=== PATIENT | female | born 1945 | race Caucasian/White ===

== ENCOUNTER 2018-10-02 21:20 | Inpatient (IN) ==
[2018-10-03] MEDS ORDERED: Naloxone 0.4 MG/ML INJ IVP PRN (02:34)
[2018-10-03] MEDS ORDERED: Potassium Chloride Elixir 20 MEQ/15 ML UDC PO ONE ×2 (02:38→05:00)
[2018-10-03] MEDS ORDERED: 0.9 % Sodium Chloride 1,000 ML IVC SCH (04:15)
[2018-10-03 04:16] LABS: Basophils % 0.2 %; Hematocrit 41.3 % (35.3-44.9); Hemoglobin 13.7 g/dL (11.5-15.4); Immature Granulocytes % 0.4 % (0-4); Lymphocytes # 0.8 K/mcL (0.6-4.6); Lymphocytes % 9.8 %; Mean Corpuscular HGB Conc 33.2 g/dL (31.6-35.5); Mean Corpuscular Hemoglobin 27.7 pg (28.0-33.3); Mean Corpuscular Volume 83.6 fL (83.0-100.0); Monocytes # 0.7 K/mcL (0.0-1.3); Monocytes % 7.8 %; Neutrophils # 6.8 K/mcL (1.6-8.9); Platelet Count 214 K/mcL (140-400); Red Blood Count 4.94 M/mcL (3.82-4.97); Red Cell Distribution Width 15.3 % (11.5-14.5); Segmented Neutrophils % 81.8 %; White Blood Count 8.4 K/mcL (4.3-11.1)
[2018-10-03 04:23] LABS: INR 1.1; Prothrombin Time 12.8 Seconds (9.4-12.1)
[2018-10-03 04:43] LABS: Albumin 3.3 g/dL (3.5-5.7); Albumin/Globulin Ratio 1.8 (1.1-2.2); Bilirubin,Total 0.4 mg/dL (0.3-1.0); Globulin 1.8 g/dL (2.4-3.5); Magnesium 2.4 mg/dL (1.6-2.6); Potassium 2.2 mEq/L (3.5-5.1); Total Protein 5.1 g/dL (6.4-8.9)
[2018-10-03] MEDS: *HR* Heparin 5,000 UNIT/ML VIAL SQ SCH ×3 (04:59→20:54)
[2018-10-03 05:02] LABS: Thyroid Stimulating Hormone 0.456 mcIU/mL (0.340-5.600)
[2018-10-03] MEDS: Ondansetron 4 MG/2 ML VIAL IVP PRN ×2 (06:30→18:32)
[2018-10-03 07:22] LABS: Adenovirus F 40/41 PCR Not detected (Not detect); Astrovirus PCR Not detected (Not detect); C.difficile Toxin A/B Gene PCR Not detected (Not detect); Campylobacter by PCR Not detected (Not detect); Cryptosporidium by PCR Not detected (Not detect); Cyclospora cayetanensis PCR Not detected (Not detect); E. coli O157 by PCR Not detected (Not detect); Entamoeba histolytica PCR Not detected (Not detect); Enteroaggregative E.coli(EAEC) Not detected (Not detect); Enteropathogenic E.coli(EPEC) Not detected (Not detect); Enterotoxigenic E.coli (ETEC) Not detected (Not detect); Giardia lamblia PCR Not detected (Not detect); Norovirus GI/GII PCR Not detected (Not detect); Plesiomonas shigelloides PCR Not detected (Not detect); Rotavirus A PCR Not detected (Not detect); Salmonella PCR Not detected (Not detect); Sapovirus PCR Not detected (Not detect); Shig/EnteroinvasiveE coli EIEC Not detected (Not detect); Shigalike tox-prod E coli STEC Not detected (Not detect); Vibrio PCR Not detected (Not detect); Vibrio cholerae PCR Not detected (Not detect); Yersinia enterocolitica PCR Not detected (Not detect)
[2018-10-03] MEDS: Nystatin Cream 15 GM TUBE TP SCH ×2 (08:15→20:21)
[2018-10-03] MEDS: 0.9 % Sodium Chloride w KCl 40 MEQ/1,000 ML MLS IVC SCH ×2 (08:39→18:34)
[2018-10-03] MEDS: Aspirin Enteric Coated 81 MG Tablet PO SCH (08:39)
[2018-10-03] MEDS ORDERED: Loperamide 1 MG/5 ML UDC PO PRN (08:48)
[2018-10-03 11:21] LABS: Uric Acid 8.1 mg/dL (2.3-7.6)
[2018-10-03 11:22] LABS: Complement C3 81 mg/dL (87-200)
[2018-10-03 16:30] LABS: Bilirubin,Urine Negative (Negative); Blood,Urine Moderate (Negative); Clarity,Urine Turbid (Clear); Color,Urine Yellow (Yellow); Glucose,Urine (UA) Normal (Normal); Ketones,Urine Negative (Negative); Leukocyte Esterase,Urine Large (Negative); Nitrite,Urine Positive (Negative); Protein,Urine 100 mg/dL (Neg-Trace); Specific Gravity,Urine 1.016 (1.010-1.025); Urobilinogen,Urine Normal (Normal)
[2018-10-03 16:32] LABS: Bacteria,Urine Many per hpf (None-Few); RBC,Urine 15-30 per hpf (0-3); Squamous Epithelial Cell,Urine Many per lpf (None-Few); WBC,Urine TNTC per hpf (0-3)
[2018-10-03 16:36] LABS: Protein/Creatinine Ratio,Urine 1.76 mg/mg (0.00-0.20)
[2018-10-03] MEDS: DAPTOmycin 500 MG in 0.9 % Sodium Chloride 100 ML IVPB SCH (20:21)
[2018-10-04] MEDS: MetroNIDAZOLE 500 MG/100 ML 500 MG/100 ML BAG IVPB SCH ×3 (00:39→16:18)
[2018-10-04 05:22] LABS: Basophils % 0.2 %; Eosinophils % 0.2 %; Hematocrit 38.6 % (35.3-44.9); Hemoglobin 12.3 g/dL (11.5-15.4); Immature Granulocytes % 0.3 % (0-4); Lymphocytes # 1.2 K/mcL (0.6-4.6); Lymphocytes % 20.5 %; Mean Corpuscular HGB Conc 31.9 g/dL (31.6-35.5); Mean Corpuscular Hemoglobin 27.7 pg (28.0-33.3); Mean Corpuscular Volume 86.9 fL (83.0-100.0); Mean Platelet Volume 9.2 fL (9.4-12.4); Monocytes # 0.6 K/mcL (0.0-1.3); Monocytes % 10.3 %; Neutrophils # 4.1 K/mcL (1.6-8.9); Platelet Count 228 K/mcL (140-400); Red Blood Count 4.44 M/mcL (3.82-4.97); Red Cell Distribution Width 15.9 % (11.5-14.5); Segmented Neutrophils % 68.5 %
[2018-10-04] MEDS: Cefepime HCl 1,000 MG in Water for inj. (sterile) 10 ML IVP SCH ×2 (05:32→17:42)
[2018-10-04] MEDS: 0.9 % Sodium Chloride w KCl 40 MEQ/1,000 ML MLS IVC SCH (05:34)
[2018-10-04] MEDS: *HR* Heparin 5,000 UNIT/ML VIAL SQ SCH ×3 (05:34→21:22)
[2018-10-04 05:39] LABS: Calcium 9.2 mg/dL (8.6-10.3); Magnesium 2.3 mg/dL (1.6-2.6); Potassium 3.3 mEq/L (3.5-5.1)
[2018-10-04 05:40] LABS: C-Reactive Protein 71 mg/L (Less than 10); Creatine Kinase 12 Units/L (30-223)
[2018-10-04] MEDS: Aspirin Enteric Coated 81 MG Tablet PO SCH (08:51)
[2018-10-04] MEDS: Nystatin Cream 15 GM TUBE TP SCH ×2 (08:52→21:22)
[2018-10-05] MEDS: MetroNIDAZOLE 500 MG/100 ML 500 MG/100 ML BAG IVPB SCH ×4 (00:21→23:54)
[2018-10-05] MEDS: *HR* Heparin 5,000 UNIT/ML VIAL SQ SCH ×3 (05:31→21:56)
[2018-10-05] MEDS: Nystatin Cream 15 GM TUBE TP SCH ×2 (08:19→22:04)
[2018-10-05] MEDS: Aspirin Enteric Coated 81 MG Tablet PO SCH (08:19)
[2018-10-05 09:19] LABS: Basophils % 0.4 %; Eosinophils % 0.2 %; Hematocrit 37.9 % (35.3-44.9); Hemoglobin 12.1 g/dL (11.5-15.4); Immature Granulocytes % 0.6 % (0-4); Lymphocytes # 1.2 K/mcL (0.6-4.6); Lymphocytes % 23.2 %; Mean Corpuscular HGB Conc 31.9 g/dL (31.6-35.5); Mean Corpuscular Hemoglobin 27.7 pg (28.0-33.3); Mean Corpuscular Volume 86.7 fL (83.0-100.0); Mean Platelet Volume 9.3 fL (9.4-12.4); Monocytes # 0.5 K/mcL (0.0-1.3); Monocytes % 9.9 %; Neutrophils # 3.4 K/mcL (1.6-8.9); Platelet Count 204 K/mcL (140-400); Red Blood Count 4.37 M/mcL (3.82-4.97); Segmented Neutrophils % 65.7 %; White Blood Count 5.2 K/mcL (4.3-11.1)
[2018-10-05 09:33] LABS: Calcium 9.4 mg/dL (8.6-10.3); Magnesium 2.1 mg/dL (1.6-2.6); Potassium 3.2 mEq/L (3.5-5.1)
[2018-10-05] MEDS: Potassium Chloride Elixir 20 MEQ/15 ML UDC PO SCH ×2 (11:03→21:55)
[2018-10-05] MEDS ORDERED: Cefepime HCl 2,000 MG in Water for inj. (sterile) 10 ML IVP SCH (18:00)
[2018-10-05] MEDS: Cefepime HCl 2,000 MG in Water for inj. (sterile) 20 ML IVP SCH (18:41)
[2018-10-05] MEDS: DAPTOmycin 500 MG in 0.9 % Sodium Chloride 100 ML IVPB SCH (18:41)
[2018-10-05 20:38] LABS: Kappa Qnt Free Light Chains 1.89 mg/dL (0.33-1.94); Lambda Qnt Free Light Chains 1.54 mg/dL (0.57-2.63)
[2018-10-06 06:35] LABS: Basophils % 0.4 %; Hematocrit 36.7 % (35.3-44.9); Hemoglobin 11.8 g/dL (11.5-15.4); Immature Granulocytes % 0.2 % (0-4); Lymphocytes # 1.1 K/mcL (0.6-4.6); Lymphocytes % 22.2 %; Mean Corpuscular HGB Conc 32.2 g/dL (31.6-35.5); Mean Corpuscular Volume 87.2 fL (83.0-100.0); Mean Platelet Volume 9.3 fL (9.4-12.4); Monocytes # 0.5 K/mcL (0.0-1.3); Monocytes % 11.1 %; Neutrophils # 3.2 K/mcL (1.6-8.9); Platelet Count 183 K/mcL (140-400); Red Blood Count 4.21 M/mcL (3.82-4.97); Red Cell Distribution Width 15.9 % (11.5-14.5); Segmented Neutrophils % 66.1 %; White Blood Count 4.9 K/mcL (4.3-11.1)
[2018-10-06 06:57] LABS: Magnesium 2.1 mg/dL (1.6-2.6); Potassium 3.5 mEq/L (3.5-5.1)
[2018-10-06] MEDS: *HR* Heparin 5,000 UNIT/ML VIAL SQ SCH ×3 (07:35→20:10)
[2018-10-06 08:03] LABS: ANA IgG by ELISA NONE DETECTED (None Detected); Serine Protease-3 Antibody 1 AU/mL (0-19)
[2018-10-06] MEDS: Aspirin Enteric Coated 81 MG Tablet PO SCH (10:02)
[2018-10-06] MEDS: Potassium Chloride Elixir 20 MEQ/15 ML UDC PO SCH ×2 (10:02→20:11)
[2018-10-06] MEDS: Nystatin Cream 15 GM TUBE TP SCH ×2 (10:02→20:11)
[2018-10-06] MEDS: MetroNIDAZOLE 500 MG/100 ML 500 MG/100 ML BAG IVPB SCH ×3 (10:02→23:29)
[2018-10-06] MEDS: Cefepime HCl 2,000 MG in Water for inj. (sterile) 20 ML IVP SCH (18:46)
[2018-10-07 04:54] LABS: Alpha 2 Globulin (PEP) 0.78 g/dL (0.48-1.05); Beta Globulin (PEP) 0.46 g/dL (0.48-1.10)
[2018-10-07] MEDS: *HR* Heparin 5,000 UNIT/ML VIAL SQ SCH ×3 (05:14→20:49)
[2018-10-07 05:51] LABS: Basophils % 0.3 %; Eosinophils % 0.2 %; Hematocrit 37.4 % (35.3-44.9); Hemoglobin 12.1 g/dL (11.5-15.4); Immature Granulocytes % 0.5 % (0-4); Lymphocytes # 1.3 K/mcL (0.6-4.6); Lymphocytes % 19.9 %; Mean Corpuscular HGB Conc 32.4 g/dL (31.6-35.5); Mean Corpuscular Hemoglobin 27.9 pg (28.0-33.3); Mean Corpuscular Volume 86.4 fL (83.0-100.0); Mean Platelet Volume 9.2 fL (9.4-12.4); Monocytes # 0.7 K/mcL (0.0-1.3); Neutrophils # 4.4 K/mcL (1.6-8.9); Platelet Count 174 K/mcL (140-400); Red Blood Count 4.33 M/mcL (3.82-4.97); Red Cell Distribution Width 15.7 % (11.5-14.5); Segmented Neutrophils % 68.1 %; White Blood Count 6.5 K/mcL (4.3-11.1)
[2018-10-07 06:27] LABS: BUN/Creatinine Ratio 15 (6-26); Blood Urea Nitrogen 15 mg/dL (8-23); Calcium 8.7 mg/dL (8.6-10.3); Carbon Dioxide 12 mEq/L (23-29); Chloride 115 mEq/L (98-107); Creatine Kinase 10 Units/L (30-223); Glucose 108 mg/dL (70-105); Osmolality,Calculated 287 (280-300); Potassium 3.7 mEq/L (3.5-5.1); Sodium 138 mEq/L (136-145); eGFR For African Americans > 60 (> 60); eGFR For Non-African Americans 53 (> 60)
[2018-10-07] MEDS: MetroNIDAZOLE 500 MG/100 ML 500 MG/100 ML BAG IVPB SCH ×2 (08:56→16:50)
[2018-10-07] MEDS: Aspirin Enteric Coated 81 MG Tablet PO SCH (08:57)
[2018-10-07] MEDS: Potassium Chloride Elixir 20 MEQ/15 ML UDC PO SCH ×2 (08:58→22:10)
[2018-10-07] MEDS: Nystatin Cream 15 GM TUBE TP SCH ×2 (08:58→22:14)
[2018-10-07] MEDS ORDERED: Isovue-370 500 ML BOTTLE IVP ONE (10:27)
[2018-10-07 10:54] LABS: IFE Reflexed IFE Done; Immunoglobulin A 9 mg/dL (68-408); Immunoglobulin G 406 mg/dL (768-1632); Immunoglobulin M 35 mg/dL (35-263)
[2018-10-07] MEDS ORDERED: Cefepime HCl 2,000 MG in Water for inj. (sterile) 20 ML IVP SCH (11:00)
[2018-10-07] MEDS ORDERED: DAPTOmycin 500 MG in 0.9 % Sodium Chloride 100 ML IVPB SCH (12:00)
[2018-10-07] MEDS ORDERED: SODIUM CHLORIDE/NAHCO3/KCL/PEG 4,000 ML SOLN.RECON PO ONE (17:00)
[2018-10-07] MEDS ORDERED: Potassium Chloride 20 MEQ, Lidocaine 1% 2 ML in 0.9 % Sodium Chloride 250 ML IVPB ONE (20:50)
[2018-10-08] MEDS ORDERED: Pantoprazole 40 MG VIAL IVP ONE ×3 (01:56→10:53)
[2018-10-08] MEDS ORDERED: Nitroglycerin 0.4 MG TAB.SUBL SL PRN (02:00)
[2018-10-08] MEDS ORDERED: Morphine Sulfate 2 MG/ML SYRINGE IVP PRN (02:08)
[2018-10-08] MEDS: Piperacillin/Tazobactam 3.375 GM in 0.9 % Sodium Chloride Mini Bag 100 ML IVPB SCH ×3 (02:10→15:32)
[2018-10-08 02:26] LABS: ABG Base Excess -6 mEq/L (-2 to 3); ABG HCO3 17 mEq/L (21-27); ABG Oxygen Saturation 96 % (95-98); ABG PCO2 29 mmHg (35-45); ABG PH 7.39 pH Units (7.32-7.45); ABG PO2 78 mmHg (85-104); ABG TCO2 18 mEq/L (20-26)
[2018-10-08 02:40] LABS: Basophils % 0.3 %; Hematocrit 38.5 % (35.3-44.9); Hemoglobin 12.7 g/dL (11.5-15.4); Immature Granulocytes % 0.3 % (0-4); Lymphocytes # 1.3 K/mcL (0.6-4.6); Lymphocytes % 16.4 %; Mean Corpuscular Hemoglobin 27.6 pg (28.0-33.3); Mean Corpuscular Volume 83.7 fL (83.0-100.0); Mean Platelet Volume 9.2 fL (9.4-12.4); Monocytes # 0.9 K/mcL (0.0-1.3); Monocytes % 11.1 %; Neutrophils # 5.5 K/mcL (1.6-8.9); Platelet Count 161 K/mcL (140-400); Red Cell Distribution Width 15.5 % (11.5-14.5); Segmented Neutrophils % 71.9 %; White Blood Count 7.7 K/mcL (4.3-11.1)
[2018-10-08 02:58] LABS: BUN/Creatinine Ratio 15 (6-26); Blood Urea Nitrogen 13 mg/dL (8-23); Calcium 9.1 mg/dL (8.6-10.3); Carbon Dioxide 17 mEq/L (23-29); Chloride 112 mEq/L (98-107); Glucose 101 mg/dL (70-105); Osmolality,Calculated 282 (280-300); Potassium 3.5 mEq/L (3.5-5.1); Sodium 136 mEq/L (136-145); eGFR For African Americans > 60 (> 60); eGFR For Non-African Americans > 60 (> 60)
[2018-10-08] MEDS: *HR* Heparin 5,000 UNIT/ML VIAL SQ SCH ×2 (06:04→14:06)
[2018-10-08] MEDS: Aspirin Enteric Coated 81 MG Tablet PO SCH (08:07)
[2018-10-08] MEDS: Nystatin Cream 15 GM TUBE TP SCH ×2 (08:09→21:44)
[2018-10-08] MEDS: Potassium Chloride Elixir 20 MEQ/15 ML UDC PO SCH ×3 (08:09→21:43)
[2018-10-08] MEDS ORDERED: *HR* Midazolam HCl 5 MG/5 ML VIAL IVP ONE ×2 (09:28→09:52)
[2018-10-08] MEDS ORDERED: *HR* FentaNYL (PF) 100 MCG/2 ML VIAL ONE (09:28)
[2018-10-08] MEDS ORDERED: Simethicone 40 MG/0.6 ML MLS IR ONE (09:52)
[2018-10-08] MEDS ORDERED: *HR* FentaNYL (PF) 100 MCG/2 ML VIAL IVP ONE (09:52)
[2018-10-08] MEDS ORDERED: *HR* Metoprolol 5 MG/5 ML VIAL IVP ONE (19:26)
[2018-10-08] MEDS ORDERED: *HR* Heparin 5,000 UNIT/ML VIAL IVP PRN ×2 (19:42)
[2018-10-08] MEDS ORDERED: *HR* Heparin 5,000 UNIT/ML VIAL IVP ONE (19:42)
[2018-10-08] MEDS ORDERED: Heparin 25,000 UNIT/250 ML D5W 25,000 UNIT/250 ML IV.SOLN IVC SCH (19:45)
[2018-10-08] MEDS ORDERED: Isovue-370 500 ML BOTTLE IVP ONE (20:13)
[2018-10-08] MEDS ORDERED: 0.9 % Sodium Chloride 1,000 ML ONE (20:29)
[2018-10-08 20:41] LABS: Basophils % 0.2 %; Hematocrit 38.1 % (35.3-44.9); Hemoglobin 12.3 g/dL (11.5-15.4); Immature Granulocytes % 0.4 % (0-4); Lymphocytes # 1.1 K/mcL (0.6-4.6); Lymphocytes % 10.9 %; Mean Corpuscular HGB Conc 32.3 g/dL (31.6-35.5); Mean Corpuscular Hemoglobin 27.2 pg (28.0-33.3); Mean Corpuscular Volume 84.3 fL (83.0-100.0); Mean Platelet Volume 9.8 fL (9.4-12.4); Monocytes % 10.2 %; Neutrophils # 7.9 K/mcL (1.6-8.9); Platelet Count 170 K/mcL (140-400); Red Blood Count 4.52 M/mcL (3.82-4.97); Red Cell Distribution Width 15.3 % (11.5-14.5); Segmented Neutrophils % 78.3 %; White Blood Count 10.1 K/mcL (4.3-11.1)
[2018-10-08 20:48] LABS: Heparin anti-factor XA UFH 0.05 IU/mL (0.30-0.70)
[2018-10-08 20:49] LABS: INR 1.3
[2018-10-08 20:58] LABS: Albumin 2.9 g/dL (3.5-5.7); Albumin/Globulin Ratio 1.5 (1.1-2.2); Bilirubin,Total 0.5 mg/dL (0.3-1.0); Calcium 8.8 mg/dL (8.6-10.3); Globulin 1.9 g/dL (2.4-3.5); Magnesium 1.7 mg/dL (1.6-2.6); Potassium 2.9 mEq/L (3.5-5.1); Total Protein 4.8 g/dL (6.4-8.9)
[2018-10-08] MEDS ORDERED: 0.9 % Sodium Chloride 1,000 ML IVC SCH ×2 (21:30→22:15)
[2018-10-08] MEDS ORDERED: Potassium Chloride 40 MEQ, Lidocaine 1% 2 ML in 0.9 % Sodium Chloride 500 ML IVPB ONE (22:16)
[2018-10-09] MEDS ORDERED: *HR* Heparin 5,000 UNIT/ML VIAL IVP PRN ×2 (00:03)
[2018-10-09] MEDS: Piperacillin/Tazobactam 3.375 GM in 0.9 % Sodium Chloride Mini Bag 100 ML IVPB SCH ×3 (00:13→15:21)
[2018-10-09] MEDS: 0.9 % Sodium Chloride 1,000 ML IVC SCH ×2 (00:22→02:12)
[2018-10-09] MEDS: Heparin 25,000 UNIT/250 ML D5W 25,000 UNIT/250 ML IV.SOLN IVC SCH ×2 (00:30→15:46)
[2018-10-09] MEDS ORDERED: 0.9 % Sodium Chloride 500 ML IVC ONE ×2 (00:36→01:25)
[2018-10-09 01:04] LABS: Hematocrit 38.6 % (35.3-44.9); Hemoglobin 12.6 g/dL (11.5-15.4); Mean Corpuscular HGB Conc 32.6 g/dL (31.6-35.5); Mean Corpuscular Hemoglobin 27.7 pg (28.0-33.3); Mean Corpuscular Volume 84.8 fL (83.0-100.0); Mean Platelet Volume 9.5 fL (9.4-12.4); Platelet Count 162 K/mcL (140-400); Red Blood Count 4.55 M/mcL (3.82-4.97); Red Cell Distribution Width 15.4 % (11.5-14.5); White Blood Count 12.2 K/mcL (4.3-11.1)
[2018-10-09 01:20] LABS: INR 1.3; Prothrombin Time 15.2 Seconds (9.4-12.1)
[2018-10-09] MEDS ORDERED: *HR* Metoprolol 5 MG/5 ML VIAL IVP ONE (01:25)
[2018-10-09] MEDS: Amiodarone Premix 360 MG/200 ML BAG IVC SCH ×2 (03:34→15:39)
[2018-10-09] MEDS: Aspirin Enteric Coated 81 MG Tablet PO SCH (08:42)
[2018-10-09] MEDS: Potassium Chloride Elixir 20 MEQ/15 ML UDC PO SCH ×2 (08:43→20:58)
[2018-10-09] MEDS: Nystatin Cream 15 GM TUBE TP SCH ×2 (08:43→20:58)
[2018-10-09 10:20] LABS: BUN/Creatinine Ratio 10 (6-26); Blood Urea Nitrogen 11 mg/dL (8-23); Calcium 8.7 mg/dL (8.6-10.3); Carbon Dioxide 18 mEq/L (23-29); Chloride 114 mEq/L (98-107); Glucose 139 mg/dL (70-105); Osmolality,Calculated 286 (280-300); Potassium 3.8 mEq/L (3.5-5.1); Sodium 137 mEq/L (136-145); eGFR For African Americans > 60 (> 60); eGFR For Non-African Americans 50 (> 60)
[2018-10-09] MEDS: DilTIAZem CD (24hr) 120 MG CAP.ER.24H PO SCH (14:17)
[2018-10-09] MEDS ORDERED: Amiodarone Premix 360 MG/200 ML BAG IVC SCH (15:45)
[2018-10-09] MEDS: Apixaban 5 MG TABLET PO SCH (20:58)
[2018-10-10] MEDS: Piperacillin/Tazobactam 3.375 GM in 0.9 % Sodium Chloride Mini Bag 100 ML IVPB SCH ×3 (00:20→18:49)
[2018-10-10 06:00] LABS: Basophils % 0.5 %; Eosinophils % 0.2 %; Hematocrit 33.2 % (35.3-44.9); Hemoglobin 10.7 g/dL (11.5-15.4); Immature Granulocytes % 0.5 % (0-4); Lymphocytes # 1.4 K/mcL (0.6-4.6); Lymphocytes % 21.7 %; Mean Corpuscular HGB Conc 32.2 g/dL (31.6-35.5); Mean Corpuscular Hemoglobin 28.2 pg (28.0-33.3); Mean Corpuscular Volume 87.6 fL (83.0-100.0); Mean Platelet Volume 10.1 fL (9.4-12.4); Monocytes # 0.5 K/mcL (0.0-1.3); Monocytes % 8.4 %; Neutrophils # 4.3 K/mcL (1.6-8.9); Platelet Count 172 K/mcL (140-400); Red Blood Count 3.79 M/mcL (3.82-4.97); Red Cell Distribution Width 15.7 % (11.5-14.5); Segmented Neutrophils % 68.7 %; White Blood Count 6.3 K/mcL (4.3-11.1)
[2018-10-10 06:08] LABS: Calcium 8.8 mg/dL (8.6-10.3); Potassium 3.8 mEq/L (3.5-5.1)
[2018-10-10 08:00] LABS: Hematocrit 32.9 % (35.3-44.9); Hemoglobin 10.6 g/dL (11.5-15.4)
[2018-10-10] MEDS: DilTIAZem CD (24hr) 120 MG CAP.ER.24H PO SCH (09:52)
[2018-10-10] MEDS: Aspirin Enteric Coated 81 MG Tablet PO SCH (09:52)
[2018-10-10] MEDS: Apixaban 5 MG TABLET PO SCH ×2 (09:53→20:02)
[2018-10-10 13:25] LABS: Hematocrit 35.5 % (35.3-44.9); Hemoglobin 11.7 g/dL (11.5-15.4)
[2018-10-10] MEDS: Nystatin Cream 15 GM TUBE TP SCH ×2 (16:30→20:03)
[2018-10-11] MEDS: Piperacillin/Tazobactam 3.375 GM in 0.9 % Sodium Chloride Mini Bag 100 ML IVPB SCH ×3 (00:40→16:15)
[2018-10-11 05:49] LABS: Basophils % 0.5 %; Eosinophils % 0.2 %; Hematocrit 35.2 % (35.3-44.9); Hemoglobin 11.4 g/dL (11.5-15.4); Immature Granulocytes % 0.4 % (0-4); Lymphocytes # 1.3 K/mcL (0.6-4.6); Lymphocytes % 23.8 %; Mean Corpuscular HGB Conc 32.4 g/dL (31.6-35.5); Mean Corpuscular Hemoglobin 27.8 pg (28.0-33.3); Mean Corpuscular Volume 85.9 fL (83.0-100.0); Mean Platelet Volume 9.5 fL (9.4-12.4); Monocytes # 0.5 K/mcL (0.0-1.3); Monocytes % 8.2 %; Neutrophils # 3.8 K/mcL (1.6-8.9); Platelet Count 164 K/mcL (140-400); Segmented Neutrophils % 66.9 %; White Blood Count 5.6 K/mcL (4.3-11.1)
[2018-10-11 06:12] LABS: Potassium 4.5 mEq/L (3.5-5.1)
[2018-10-11] MEDS: DilTIAZem CD (24hr) 120 MG CAP.ER.24H PO SCH (08:35)
[2018-10-11] MEDS: Apixaban 5 MG TABLET PO SCH ×2 (08:35→22:02)
[2018-10-11] MEDS: Aspirin Enteric Coated 81 MG Tablet PO SCH (08:38)
[2018-10-11] MEDS: Nystatin Cream 15 GM TUBE TP SCH ×2 (11:28→22:03)
[2018-10-12] MEDS: Piperacillin/Tazobactam 3.375 GM in 0.9 % Sodium Chloride Mini Bag 100 ML IVPB SCH ×3 (00:39→16:32)
[2018-10-12 02:26] LABS: Basophils % 0.3 %; Eosinophils % 0.2 %; Hematocrit 35.5 % (35.3-44.9); Hemoglobin 11.4 g/dL (11.5-15.4); Immature Granulocytes % 0.3 % (0-4); Lymphocytes # 1.3 K/mcL (0.6-4.6); Lymphocytes % 19.7 %; Mean Corpuscular HGB Conc 32.1 g/dL (31.6-35.5); Mean Corpuscular Hemoglobin 27.9 pg (28.0-33.3); Mean Platelet Volume 9.7 fL (9.4-12.4); Monocytes # 0.5 K/mcL (0.0-1.3); Monocytes % 8.2 %; Neutrophils # 4.6 K/mcL (1.6-8.9); Platelet Count 185 K/mcL (140-400); Red Blood Count 4.08 M/mcL (3.82-4.97); Red Cell Distribution Width 14.9 % (11.5-14.5); Segmented Neutrophils % 71.3 %; White Blood Count 6.5 K/mcL (4.3-11.1)
[2018-10-12 02:44] LABS: Calcium 8.9 mg/dL (8.6-10.3); Potassium 4.1 mEq/L (3.5-5.1)
[2018-10-12] MEDS: DilTIAZem CD (24hr) 180 MG CAP.ER.24H PO SCH (07:58)
[2018-10-12] MEDS: Aspirin Enteric Coated 81 MG Tablet PO SCH (07:58)
[2018-10-12] MEDS: Apixaban 5 MG TABLET PO SCH ×2 (08:01→20:38)
[2018-10-12] MEDS: Nystatin Cream 15 GM TUBE TP SCH ×2 (10:48→20:38)
[2018-10-13] MEDS: Piperacillin/Tazobactam 3.375 GM in 0.9 % Sodium Chloride Mini Bag 100 ML IVPB SCH ×2 (00:28→07:39)
[2018-10-13] MEDS: DilTIAZem CD (24hr) 180 MG CAP.ER.24H PO SCH (07:39)
[2018-10-13] MEDS: Aspirin Enteric Coated 81 MG Tablet PO SCH (07:39)
[2018-10-13] MEDS: Apixaban 5 MG TABLET PO SCH ×2 (07:39→20:10)
[2018-10-13] MEDS: Nystatin Cream 15 GM TUBE TP SCH ×2 (11:15→20:10)
[2018-10-13] MEDS ORDERED: *HR* LORazepam 0.5 MG TABLET PO PRN (11:53)
[2018-10-14] MEDS: Apixaban 5 MG TABLET PO SCH (09:48)
[2018-10-14] MEDS: DilTIAZem CD (24hr) 180 MG CAP.ER.24H PO SCH (09:49)
[2018-10-14] MEDS: Aspirin Enteric Coated 81 MG Tablet PO SCH (09:49)
[2018-10-14] MEDS: Nystatin Cream 15 GM TUBE TP SCH (09:50)
[2018-10-14 11:44] VITALS: BP 125/65
[2018-10-16] MEDS ORDERED: Apixaban 5 MG TABLET PO SCH (21:00)
== END 2018-10-14 17:06 | DRG 299 ==
LOC: 3ANU → SUATTDRO 10-03 00:03 → 2NNU 10-09 03:21
PROVIDERS: ADMIT Internal Medicine Nephrology; ATTEND Internal Medicine
PROC: ENDOCBX (2018-10-08 13:45)